=== PATIENT | male | born 1980 | race Two or more races ===

== ENCOUNTER 2018-10-30 01:02 | Inpatient (IN) | payer MEDICAID | END 2018-10-31 15:30 | disposition home or self-care (01) | LOC: ER 01:02 → TELE 01:03 → TELE-CENTR 11:14 | DX: K29.00 Acute gastritis without bleeding (principal); D70.3 Neutropenia due to infection; R11.10 Vomiting, unspecified ==

== ENCOUNTER 2020-03-26 15:05 | Emergency (ER) | payer MEDICAID ==
[~2020-03-26] VITALS: Ht 177.8 cm; Wt 74.8 kg
[~2020-03-26 15:05] MED LIST: ATEN-60 PO
[2020-03-26 15:49] LABS: Hemoglobin 13.8 g/dL (13.5-17.5)
[2020-03-26 15:51] LABS: Hematocrit 39.8 % (41.0-53.0); Mean Corpuscular Hemoglobin 28.5 pg (28.0-32.0); Mean Corpuscular Hgb Conc. 34.6 g/dL (32.0-36.0); Mean Corpuscular Volume 82.3 fL (80.0-100.0); Red Blood Cells 4.84 10^6/uL (4.5-5.90)
[2020-03-26 16:07] LABS: White Blood Cell 1.9 10^3/uL (4.4-10.8)
[2020-03-26 16:09] LABS: Basophils % (manual) 0 (0.0-2.0); Blast Cells 0; Myelocytes % 0; Promyelocytes % 0; Reactive Lymphocytes 0
[2020-03-26 16:10] LABS: Albumin 3.4 g/dL (3.4-5.0); Calcium 7.9 mg/dL (8.5-10.1); Potassium 3.9 mmol/L (3.5-5.1)
[2020-03-26 16:13] LABS: Bilirubin, Total 0.4 mg/dL (0.2-1.0); Total Protein 7.5 g/dL (6.4-8.2)
[2020-03-26 16:23] LABS: Band Neutrophils % (manual) 21; Eosinophils % (manual) 4 (0-7); Lymphocytes % (manual) 51 (10.0-50.0); Metamyelocytes % 2; Monocytes % (manual) 4 (0-12)
[2020-03-26] MEDS ORDERED: ACETAMINOPHEN 325 MG TAB PO ONE (17:15)
[2020-03-26] MEDS ORDERED: SODIUM CHLORIDE 0.9% 1,000 ML IV ONE (18:00)
[2020-03-26] MEDS ORDERED: cefTRIAXone 1GM/50ML D5W 50 ML IV ONE (18:00)
[2020-03-26 18:55] LABS: Urine Bacteria NONE SEEN /hpf (None Seen); Urine Blood Negative /uL (Negative); Urine Specific Gravity 1.029 (1.001-1.035); Urine WBC 2 /hpf (0 - 3)
[2020-03-26 19:36] VITALS: BP 124/72
== END 2020-03-26 20:23 | disposition home or self-care (01) ==
LOC: ER 15:05
DX: R42 Dizziness and giddiness (principal); R50.9 Fever, unspecified; Z20.822 Contact with and (suspected) exposure to COVID-19
CPT/HCPCS: 36415; 70450; 71045; 80053; 81001; 85007; 85027; 87426; 93005; 96365; 99285; J0696